=== PATIENT | male | born 1965 | race African-American/Black ===

== ENCOUNTER 2016-12-29 07:31 | Day surgery (SDC) | payer OTHER ==
[2016-12-28 11:07] VITALS: BMI 32.5
[2016-12-29] MEDS ORDERED: MIDAZOLAM HCL 2 MG/2 ML SINGLE DOSE VIAL ONE (08:13)
[2016-12-29] MEDS ORDERED: PROPOFOL 20 ML ONE ×3 (08:18)
[2016-12-29] MEDS ORDERED: SUCCINYLCHOLINE CHLORIDE 200 MG/10 ML VIAL ONE (08:20)
[2016-12-29] MEDS ORDERED: BUPIVACAINE HCL/PF 2.5 MG/ML - 30 ML VIAL IJ ONE (08:38)
[2016-12-29] MEDS ORDERED: LIDOCAINE HCL 2% (20ML MULTI-DOSE VIAL) NR ONE (08:38)
[2016-12-29] MEDS ORDERED: LIDOCAINE HCL 2% (50ML VIAL) INF ONE (09:18)
[2016-12-29] MEDS ORDERED: BUPIVACAINE HCL/PF 0.25% (2.5MG/ML) 10 ML VIAL IJ ONE (09:19)
[2016-12-29] MEDS ORDERED: LACTATED RINGERS SOLUTION 1,000 ML IV SCH (10:00)
[2016-12-29] MEDS ORDERED: ONDANSETRON 4 MG/2 ML VIAL IVPUSH PRN (10:44)
[2016-12-29 11:24] VITALS: TEMP 97.8
[2016-12-29 14:36] VITALS: BP 136/90; PULSE 64
--- NOTE | 2016-12-30 09:31 | OP ---
DATE OF OPERATION: 12/29/2016 PREOPERATIVE DIAGNOSES: 1. Left carpal tunnel syndrome. 2. Left cubital tunnel syndrome. POSTOPERATIVE DIAGNOSES: 1. Left carpal tunnel syndrome. 2. Left cubital tunnel syndrome. PROCEDURE: 1. Left endoscopic carpal tunnel release. 2. Cubital tunnel release. 3. Ulnar nerve transposition. SURGEON: Phani Crockett MD ROTARY VENEER MACHINE OPERATOR: None. ANESTHESIA: General. ESTIMATED BLOOD LOSS: Minimal. COMPLICATIONS: None. TOURNIQUET TIME: 53 minutes. OPERATIVE INDICATIONS: This is a 51-year-old male patient who suffers from carpal tunnel syndrome and cubital tunnel syndrome. He has had worsening symptoms that have been interfering with his ability to sleep and use his hand. We discussed the risks, benefits, and alternatives in great length. The risks were explained, included, but not limited to, persistence of the condition, injury to nerves and other adjacent structures, and range of motion impairments, permanent disability, infection, and bleeding. Patient understood all these risks. All questions were answered, and consent was signed. OPERATIVE COURSE: Patient was brought to the operating room where a timeout was performed. Anesthesia administered sedation. The left arm was placed on an arm board and prepped and draped in standard sterile fashion. Hand was elevated, and Esmarch was used to exsanguinate. Tourniquet was then inflated to 250 mmHg. Attention was first directed towards the carpal tunnel. A 1.5-cm incision was made over the proximal wrist crease on the volar aspect between the flexor carpi ulnaris and palmaris longus. The dissection was then continued. Skin flaps were raised and blunt dissection down to the level of the palmaris fascia. The antebrachial fascia was then incised proximally sharply, releasing the median nerve proximally. Distally, a U-shaped flap of fascia was elevated, and the median nerve was identified. Using a hamate finder, the carpal tunnel began to be dilated. Sequentially, 2 larger dilators were inserted. The endoscope was then advanced into the carpal tunnel, and the transverse carpal ligament was identified. A synovial elevator had been used to also clean out the carpal tunnel prior to scope insertion. The distal aspect of the transverse carpal ligament was identified by palpation and transillumination. Under direct vision, the distal fibers of the transverse carpal ligament were divided. The [id number] division then continued, and fat was seen herniating into the field at the completion of the release. The wound was irrigated and layer closed with 4-0 Vicryl suture and a running subcuticular 5-0 Monocryl suture. Attention was then directed towards the cubital tunnel. A 4-cm incision curvilinear in shape was made between the medial epicondyle and around the medial epicondyle. A blunt dissection was undertaken down to the level of the Zamudio fascia. Care was taken to identify and protect the superficial sensory nerve branches. The Zamudio ligament was then divided sharply with 15-blade scalpel, exposing the ulnar nerve. Proximally, the nerve was then released to the level of the arcade of [place]. Distally, the nerve was released to the level of the FCU heads. Then, the elbow was taken through a full range of motion to determine the position of the ulnar nerve in various positions. The nerve was found to be subluxing over the medial epicondyle, therefore, a transposition, advancing the nerve anteriorly. The flap of flexor carpi ulnaris fascia was then mobilized and sutured subcutaneously with the nerve in the transposed position. Once again, the nerve was taken through a full range of motion and found to be not subluxing anymore. The wound was irrigated and closed in layers using 3-0 Vicryl and 4-0 Monocryl and 5-0 Monocryl sutures. The patient was placed in soft bulky dressings. He tolerated the procedure well and was brought to the recovery room in stable condition. The tourniquet was released, and hemostasis was achieved prior to wound closure. [place] [id number]
== END 2016-12-29 12:00 | disposition home or self-care (01) ==
LOC: FASU 07:31
PROVIDERS: ATTEND Surgery Surgery of the Hand
PROC: 01N40ZZ Release Ulnar Nerve, Open Approach (ICD-10-PCS; 2016-12-29)
PROC: 01S40ZZ Reposition Ulnar Nerve, Open Approach (ICD-10-PCS; 2016-12-29)
PROC: 01N54ZZ Release Median Nerve, Percutaneous Endoscopic Approach (ICD-10-PCS; principal; 2016-12-29 08:40)
DX: G56.02 Carpal tunnel syndrome, left upper limb (principal); G56.22 Lesion of ulnar nerve, left upper limb
CPT/HCPCS: 94760

== ENCOUNTER 2017-01-12 06:07 | Day surgery (SDC) | payer OTHER ==
[2016-12-28 11:18] VITALS: BMI 32.5
[2017-01-12] MEDS ORDERED: MIDAZOLAM HCL 2 MG/2 ML SINGLE DOSE VIAL ONE ×2 (07:22→07:39)
[2017-01-12] MEDS ORDERED: PROPOFOL 20 ML ONE ×2 (07:24)
[2017-01-12] MEDS ORDERED: SUCCINYLCHOLINE CHLORIDE 200 MG/10 ML VIAL ONE (07:25)
[2017-01-12] MEDS ORDERED: ROPIVACAINE HCL 0.5% 30ML VIAL ONE (07:31)
[2017-01-12] MEDS ORDERED: ONDANSETRON 4 MG/2 ML VIAL ONE (08:18)
[2017-01-12 10:37] VITALS: BP 146/96; PULSE 58; TEMP 98
--- NOTE | 2017-02-25 20:07 | OP ---
DATE OF OPERATION: 01/12/2017 PREOPERATIVE DIAGNOSES: 1. Right carpal tunnel syndrome. 2. Right cubital tunnel syndrome. PROCEDURE: 1. Right endoscopic carpal tunnel release. 2. Cubital tunnel release. SURGEON: ROSA MERINO MD PRODUCT TESTER: None. ANESTHESIA: Supraclavicular nerve block. ESTIMATED BLOOD LOSS: Minimal. COMPLICATIONS: None. OPERATIVE INDICATIONS: This is a patient who suffered from bilateral carpal and cubital tunnel syndrome with paresthesias of all of his digits. These did not respond to conservative treatment. We discussed the risks, benefits, and alternatives at great length. The risks were explained, including but not limited to: persistence of the condition, weakness, injury to adjacent structures, need for reoperative surgery, infection, bleeding. The patient understood all these risks. All questions were answered. Consent was signed. DESCRIPTION OF PROCEDURE: The patient was brought to the operating room where a timeout was performed. The right arm was prepped and draped in the standard sterile fashion. Anesthesia performed timeout and did a supraclavicular nerve block. The patient was sedated and the arm was placed on an arm board with the patient in the supine position and prepped and draped in the standard sterile fashion. A tourniquet was applied to the upper arm. An Esmarch was used to exsanguinate the hand and forearm and the tourniquet was inflated to 250 mmHg. Using a 15 blade scalpel, a transverse incision was made in the proximal wrist crease at the wrist measuring 2-3 cm between the flexor carpi radialis and the flexor carpi ulnaris. Longitudinal dissection by gentle spreading with the scissors was used to protect the subcutaneous nerves and the cutaneous nerves and expose the forearm fascia. Dissection was continued down to the level of the antebrachial fascia. Using the tenotomy scissors, the antebrachial fascia was released proximally for 1 to 2 cm. A U-shaped incision was made into the forearm fascia creating rectangular flap distally based on the transverse carpal ligament. While vertically elevating the flap of the forearm fascia in a palmar direction, tenotomy scissors were used to gently spread and separate the forearm fascia from the synovium of the forearm bursa. The synovial elevator was placed in line with the base of the ring finger, radial to the hook of the hamate. The synovial elevator was used to the transverse carpal ligament. This was continued to separate the ulnar bursal synovium distally until the tip was palpable at the distal end of the carpal tunnel. A hamate finder was inserted, gently hugging the ulnar aspect of the carpal tunnel while aiming at the base of the ring finger and holding the wrist in slight extension. The blade assembly was then introduced into the carpal tunnel after checking blade extension and retraction. Proximal to distal passes were used to accurately define an ulnar strip of the transverse carpal ligament. Palpating with my thumb, the distal margin of the ligament and its junction with the pad of fat was identified. While holding the wrist in slight extension, the blade assembly was advanced into the carpal tunnel, pressing the viewing window snuggly against the deep side of the ligament and hugging the hump of the hamate to ensure an ulnar course. Beginning at the distal aspect of the transverse carpal ligament, the blade was retracted and complete release of the distal aspect was performed while applying upward pressure on the blade assembly. The proximal portion of the transverse carpal ligament was then divided firmly but gently, withdrawing the blade assembly to divide the distal one-half of transverse ligament. After retracting the blade, the blade assembly was reinserted and fat was seen herniating down into the field, and a complete release was observed. The wound was irrigated and a subcuticular 5-0 Monocryl suture was used to close the wound with Steri-Strips. A soft bulky dressing was applied and the tourniquet was released. A sling was applied as well. At this point, attention was then directed toward the cubital tunnel. A 4-cm curvilinear incision was made around the medial epicondyle. Blunt dissection carried down to the fascia, which was then sharply incised with a 15 blade scalpel. Zamudio ligament was incised in a similar fashion. The ulnar nerve was identified and followed along its course proximally and distally. All points of compression proximally to the level of the arcade of [place] and distally to the heads of the flexor carpi ulnaris tendons. The elbow was taken through a full range of motion and found that the ulnar nerve was not subluxing. The wound was copiously irrigated with saline. The tourniquet was released and hemostasis was achieved. The wound was closed using 3-0 Vicryl and 5-0 Monocryl running sutures and Steri-Strips. A soft bulky dressing was applied around the elbow as well as a sling. The patient tolerated the procedure well and was brought to the recovery room in stable condition. [place] [id number]
== END 2017-01-12 10:20 | disposition home or self-care (01) ==
LOC: FASU 06:07
PROVIDERS: ATTEND Surgery Surgery of the Hand
PROC: 01N40ZZ Release Ulnar Nerve, Open Approach (ICD-10-PCS; 2017-01-12)
PROC: 01N50ZZ Release Median Nerve, Open Approach (ICD-10-PCS; principal; 2017-01-12 08:09)
DX: G56.01 Carpal tunnel syndrome, right upper limb (principal); G56.21 Lesion of ulnar nerve, right upper limb

== ENCOUNTER 2020-08-16 08:52 | Emergency (ER) | payer OTHER ==
[2020-08-16 08:58] VITALS: TEMP 98.7; BMI 30.8
[2020-08-16 09:51] VITALS: BP 136/82; PULSE 82
== END 2020-08-16 10:42 | disposition home or self-care (01) ==
LOC: FER 08:52
DX: T40.1X1A Poisoning by heroin, accidental (unintentional), initial encounter (principal)
CPT/HCPCS: 93005; 99284-25